=== PATIENT | female | born 1995 ===

== ENCOUNTER 2019-05-25 16:23 | Emergency (ER) | payer OTHER ==
[~2019-05-25] VITALS: Ht 139.7 cm; Wt 56.7 kg
[2019-05-25 16:46] VITALS: BP 118/78
--- NOTE | 2019-05-25 19:24 | NUR ---
A CALLER BY THE NAME OF JERO WHO IDENTIFIED HERSELF THE PATIENTS SISTER CALLED THE ER REQUESTING TO SPEAK TO THE LANDSCAPE PAINTER WHICH FOR THIS SHIFT IS ME. I GOT ON THE PHONE AND THE CALLER WAS EXPLAINING HER SITUATION SHE WAS CALM IN EXPLAINING THE DETAILS WHICH INCLUDED THAT SHE WAS UPSET BECAUSE SHE STATES THAT "HER MOTHER AND SISTER WERE ESCORTED OUT OF THE ER" SHE STATES THAT SHE WAS ON THE PHONE WITH HER MOTHER WHO IS THE GOLF COURSE KEEPER OF THE PATIENT PER THE CALLER. I PREVIOUSLY READ THE NOTES OF THE VISIT AND SPOKE TO THE STAFF THAT MADE THE CHART NOTATIONS AND ADVISED THE CALLER THAT THE PATIENT WAS NOT KICKED OUT OF THE ER SHE LEFT ON HER OWN WILL WHEN THE VISITOR WAS ASKED TO LEAVE DUE TO HER BEHAVIORS. AT THIS TIME THE CALLED HAD A CHANGE IN HER TONE AND STARTED YELLING AND THREATENING SHE STATES THAT SHE IS SUING MYSELF AND THIS FACILITY FOR KICKING THE PATIENT OUT AT THIS TIME I ATTEMPTED TO TALK TO THE CALLER WHO BECAME MORE AND MORE AGGRESSIVE SO I ADVISED THAT DUE TO HER THREATS I WOULD NO LONGER BE ABLE TO CONTINUE THE CALL AT THIS TIME AND I HUNG UP.
== END 2019-05-25 19:07 | disposition left against medical advice (07) ==
LOC: ER 16:23
DX: R10.9 Unspecified abdominal pain (principal); Z53.21 Procedure and treatment not carried out due to patient leaving prior to being seen by health care provider